=== PATIENT | male | born 1950 ===

== ENCOUNTER 2017-08-10 14:00 | Observation (INO) | payer MEDICARE, MEDICAID ==
[2017-08-10 14:00] VITALS: BMI 23.3
--- NOTE | 2017-08-10 14:22 | ED PDOC ---
HPI: Chest Pain Time Seen by Provider: 08/10/17 14:08 Chief Complaint (Nursing): Chest Pain Chief Complaint (Provider): Chest Pains and Palpitations History Per: Patient History/Exam Limitations: no limitations Onset/Duration Of Symptoms: Hrs Current Symptoms Are (Timing): Still Present Quality: Tightness, Squeezing Additional Complaint(s): Fred Resendiz, a 66 year old male, who has a past medical history of diabetes and hypertension is brought into the ED by the EMS complaining of non radiating squeezing, tight chest pains and palpitations associated with shortness of breath. Patient is status post cardiac catherization (2 years ago). PMD: Brodie Mcpherson [facility] Feeder: Dr. Jansen - Risk Factors TAD Risk Factors: Pos: Hypertension Past Medical History Reviewed: Historical Data, Nursing Documentation, Vital Signs Vital Signs: Last Vital Signs Temp 98.2 F 08/10/17 14:02 Pulse 76 08/10/17 14:48 Resp 16 08/10/17 14:02 BP 146/93 H 08/10/17 14:02 Pulse Ox 100 08/10/17 14:36 - Medical History PMH: Arthritis, Diabetes, Fractures (RT.ARM/RT.LEG/RT.SHOULDER, NO SURGERY), Gastritis, HTN, Hypercholesterolemia, Kidney Stones (LONG AGO PASSED, NO SURGERY ), Chronic Kidney Disease - Surgical History Surgical History: Appendectomy, Coronary Stent, Endoscopy - Family History Family History: States: Unknown Family Hx - Home Medications Home Medications: Ambulatory Orders Medication Instructions Recorded Insulin Human (NPH)/Regular 40 units SC BID 03/06/15 [Novolin 70/30 (70/30 units/ml) 10 ml] Lisinopril 10 mg PO DAILY 03/06/15 MetFORMIN [glucoPHAGE] 1,000 mg PO BID 03/06/15 Pravastatin Sodium [Pravastatin] 20 mg PO DAILY 03/06/15 Carvedilol 1 tab PO BID 09/25/15 - Allergies Allergies/Adverse Reactions: Allergies Allergy/AdvReac Type Severity Reaction Status Date / Time No Known Allergies Allergy Verified 08/10/17 14:02 Review of Systems ROS Statement: Except As Marked, All Systems Reviewed And Found Negative Cardiovascular: Positive for: Chest Pain (Squeezing tight chest pain), Palpitations Physical Exam - Reviewed Nursing Documentation Reviewed: Yes Vital Signs Reviewed: Yes - Physical Exam Appears: Positive for: Non-toxic, No Acute Distress Head Exam: Positive for: ATRAUMATIC, NORMAL INSPECTION, NORMOCEPHALIC Skin: Positive for: Normal Color, Warm, Dry. Negative for: Rash Eye Exam: Positive for: Normal appearance, EOMI, PERRL. Negative for: Nystagmus ENT: Positive for: Normal ENT Inspection Neck: Positive for: Normal, Painless ROM, Supple Cardiovascular/Chest: Positive for: Regular Rate, Rhythm, Chest Non Tender. Negative for: Tachycardia Respiratory: Positive for: Normal Breath Sounds. Negative for: Rales, Rhonchi, Wheezing, Respiratory Distress Gastrointestinal/Abdominal: Positive for: Normal Exam, Bowel Sounds, Soft. Negative for: Tenderness, Guarding, Rebound Back: Positive for: Normal Inspection. Negative for: L CVA Tenderness, R CVA Tenderness Extremity: Positive for: Normal ROM. Negative for: Tenderness, Deformity, Swelling Lymphatic: Negative for: Adenopathy Neurologic/Psych: Positive for: Alert, Oriented, Gait - ECG O2 Sat by Pulse Oximetry: 100 (RA) Pulse Ox Interpretation: Normal Medical Decision Making Medical Decision Makin Initial Impression: 66 y/o male presenting with chest pain - r/o acute coronary syndrome Initial Plan: * EKG * CMP * Troponin * CBC * CXR * Aspirin 325mg PO * Reevaluation Scribe Attestation Documented by Susan Morales acting as a scribe for Lam Weiner MD. Provider Attestation All medical record entries made by the Scribe were at my direction and personally dictated by me. I have reviewed the chart and agree that the record accurately reflects my personal performance of the history, physical exam, medical decision making, and the department course Disposition - Clinical Impression Clinical Impression: Chest pain - Patient ED Disposition Is Patient to be Admitted: Transfer of Care - Disposition Disposition: Transfer of Care Disposition Time: 15:00 Condition: FAIR Forms: [facility] (Hebrew) Patient Signed Over To: Melissa Stephen
[2017-08-10 14:55] LABS: BASO # 0.1 K/uL (0.0-0.2); EOS # 0.1 K/uL (0.0-0.7); EOS % 1.5 % (0.0-4.0); LYMPH # 2.7 K/uL (1.0-4.3); LYMPH % 32.2 % (20.0-40.0); MEAN CELL VOLUME 92.8 fl (80.0-94.0); MEAN CORPUSCULAR HEMOGLOBIN 30.7 pg (27.0-31.0); MEAN CORPUSCULAR HGB CONC 33.1 g/dL (33.0-37.0); MEAN PLATELET VOLUME 9.6 fl (7.2-11.7); MONO # 0.8 K/uL (0.0-0.8); MONO % 9.7 % (0.0-10.0); NEUT # 4.6 K/uL (1.8-7.0); NEUT % 55.6 % (50.0-75.0); NRBC % 0.1 % (0.0-0.0); RED CELL DISTRIBUTION WIDTH 12.4 % (11.5-14.5); WHITE BLOOD COUNT 8.2 K/uL (4.8-10.8)
[2017-08-10 15:10] LABS: ALB/GLOB RATIO 1.3 (1.0-2.1); ALKALINE PHOSPHATASE 58 U/L (38-126); ALT/SGPT 37 U/L (21-72); AST/SGOT 28 U/L (17-59); BILIRUBIN,TOTAL 0.5 mg/dl (0.2-1.3); BLOOD UREA NITROGEN 13 mg/dl (9-20); CALCIUM 9.6 mg/dL (8.4-10.2); CARBON DIOXIDE 25 mmol/L (22-30); CHLORIDE 103 mmol/L (98-107); GFR AFRICAN-AMERICAN > 60; GLUCOSE,RANDOM 180 mg/dL (75-110); POTASSIUM 4.3 MMOL/L (3.6-5.0); SODIUM 138 mmol/l (132-148); TOTAL PROTEIN 7.2 G/DL (6.3-8.2)
--- NOTE | 2017-08-10 15:40 | ED PDOC ---
- Laboratory Results Result Diagrams: 08/10/17 14:47 08/10/17 14:47 Interpretation Of Abn Labs: Mild hyperglycemia. No emergently significant lab abnormalities. - ECG ECG: Positive for: Interpreted By Me ECG Rhythm: Positive for: Normal QRS, Normal ST Segment, Sinus Rhythm O2 Sat by Pulse Oximetry: 100 (RA) Pulse Ox Interpretation: Normal - Radiology X-Ray: Interpreted by Me X-Ray Interpretation: No Acute Disease - Progress ED Course And Treament: [address] Weiner. Pt with chest pain and cardiac risk factors. Pending ER workup and hospitalization for serial troponins to r/o ACS. Disposition Discussed With : Tu Bojorquez Doctor Will See Patient In The: ED Counseled Patient/Family Regarding: Studies Performed, Diagnosis - Clinical Impression Clinical Impression: Chest pain - POA Present On Arrival: Poor Glycemic Control - Disposition Disposition: Hospitalized as Observation Patient Disposition Time: 15:00 Condition: SERIOUS Forms: [employer] (Telugu)
--- NOTE | 2017-08-10 17:20 | CP.PCM.HP ---
History of Present Illness - History of Present Illness History of Present Illness: 66 yo male with history of CAD (2 stents), DM2, HTN and HLD complained of pressure type of pain lasting for about 5 minutes since yesterday. Present on Admission - Present on Admission Any Indicators Present on Admission: No History of DVT/PE: No History of Uncontrolled Diabetes: No Urinary Catheter: No Decubitus Ulcer Present: No Review of Systems - Review of Systems All systems: reviewed and no additional remarkable complaints except (aside from those mentioned above, 12 point system review were negative by me) Past Patient History - Tetanus Immunizations Tetanus Immunization: Unknown - Past Medical History & Family History Past Medical History?: Yes Past Family History: Reviewed and not pertinent - Past Social History Smoking Status: Never Smoked Alcohol: None Drugs: Denies - CARDIAC Hx Hypercholesterolemia: Yes Hx Hypertension: Yes - PULMONARY Hx Respiratory Disorders: No - NEUROLOGICAL Hx Neurological Disorder: No - HEENT Hx HEENT Problems: Yes (GLASSES) Hx Cataracts: Yes Hx Glaucoma: Yes (HAD SURGERY) - RENAL Hx Kidney Stones: Yes (able to pass the stone) - ENDOCRINE/METABOLIC Hx Endocrine Disorders: Yes Hx Diabetes Mellitus Type 2: Yes - HEMATOLOGICAL/ONCOLOGICAL Hx Blood Disorders: No - INTEGUMENTARY Hx Dermatological Problems: No - MUSCULOSKELETAL/RHEUMATOLOGICAL Hx Arthritis: Yes Hx Fractures: Yes (RT.ARM/RT.LEG/RT.SHOULDER, NO SURGERY) - GASTROINTESTINAL Hx Gastritis: Yes - GENITOURINARY/GYNECOLOGICAL Hx Genitourinary Disorders: No - PSYCHIATRIC Hx Psychophysiologic Disorder: No Hx Substance Use: No - SURGICAL HISTORY Hx Appendectomy: Yes Hx Cholecystectomy: Yes Hx Coronary Stent: Yes (2004, 2014) - ANESTHESIA Hx Anesthesia: Yes Hx Anesthesia Reactions: No Hx Malignant Hyperthermia: No Meds Allergies/Adverse Reactions: Allergies Allergy/AdvReac Type Severity Reaction Status Date / Time No Known Allergies Allergy Verified 08/10/17 14:02 Physical Exam - Constitutional Appears: No Acute Distress - Head Exam Head Exam: ATRAUMATIC - Eye Exam Eye Exam: absent: Scleral icterus - ENT Exam ENT Exam: Mucous Membranes Moist - Neck Exam Neck exam: Negative for: Meningismus - Respiratory Exam Respiratory Exam: absent: Rhonchi, Wheezes, Respiratory Distress - Cardiovascular Exam Cardiovascular Exam: REGULAR RHYTHM, +S1, +S2 - GI/Abdominal Exam GI & Abdominal Exam: Soft. absent: Tenderness - Rectal Exam Rectal Exam: Deferred - Extremities Exam Extremities exam: Negative for: calf tenderness, pedal edema - Neurological Exam Neurological exam: Alert, Oriented x3 - Psychiatric Exam Psychiatric exam: Normal Affect - Skin Skin Exam: Dry, Intact Results - Vital Signs Recent Vital Signs: Last Vital Signs Temp 98.2 F 08/10/17 14:02 Pulse 76 08/10/17 14:48 Resp 16 08/10/17 14:02 BP 146/93 H 08/10/17 14:02 Pulse Ox 100 08/10/17 15:42 - Labs Result Diagrams: 08/10/17 14:47 08/10/17 14:47 Labs: Laboratory Results - last 24 hr 08/10/17 08/10/17 14:47 14:47 WBC 8.2 RBC 4.20 L Hgb 12.9 Hct 39.0 MCV 92.8 MCH 30.7 MCHC 33.1 RDW 12.4 Plt Count 235 MPV 9.6 Neut % (Auto) 55.6 Lymph % (Auto) 32.2 [place] % (Auto) 9.7 Eos % (Auto) 1.5 Baso % (Auto) 1.0 Neut # 4.6 Lymph # 2.7 [place] # 0.8 Eos # 0.1 Baso # 0.1 Sodium 138 Potassium 4.3 Chloride 103 Carbon Dioxide 25 Anion Gap 15 BUN 13 Creatinine 0.8 Est GFR ( Amer) > 60 Est GFR (Non-Af Amer) > 60 Random Glucose 180 H Calcium 9.6 Total Bilirubin 0.5 AST 28 ALT 37 Alkaline Phosphatase 58 Troponin I < 0.0120 Total Protein 7.2 Albumin 4.1 Globulin 3.1 Albumin/Globulin Ratio 1.3 Assessment & Plan (1) Chest pain Status: Acute Comment: place on observation in telemetry. serial Troponin and EKG. Lipid panel in am. ASA 81mg PO daily. Lipitor 10mg PO daily. NTG SL prn for chest pain. Coreg 12.5mg PO BID (2) DM2 (diabetes mellitus, type 2) Status: Acute Comment: accuchek ACHS with low Lispro coverage. diabetic diet. Metformin 1000mg PO BID. HgA1C, BMP in am (3) HTN (hypertension) Status: Acute Comment: BP slightly elevated. Coreg 12.5mg PO BID. Lisinopril 10mg PO daily (4) DVT prophylaxis Status: Acute Comment: Lovenox 40mg SC daily
--- NOTE | 2017-08-10 17:52 | RAD ---
HISTORY: chest pain COMPARISON: No prior. TECHNIQUE: Chest PA and lateral FINDINGS: LUNGS: No active pulmonary disease. PLEURA: No significant pleural effusion identified. No pneumothorax apparent. CARDIOVASCULAR: Normal. OSSEOUS STRUCTURES: No significant abnormalities. VISUALIZED UPPER ABDOMEN: Normal. OTHER FINDINGS: None. IMPRESSION: No active disease.
[2017-08-10] MEDS: Insulin Lispro (humaLOG) 100 Units/ml Inj SC SCH (22:04)
[2017-08-11 06:27] LABS: BLOOD UREA NITROGEN 14 mg/dl (9-20); CALCIUM 9.6 mg/dL (8.4-10.2); CARBON DIOXIDE 25 mmol/L (22-30); CHLORIDE 102 mmol/L (98-107); CHOLESTEROL 155 mg/dL (0-199); GFR AFRICAN-AMERICAN > 60; GLUCOSE,RANDOM 189 mg/dL (75-110); POTASSIUM 4.8 MMOL/L (3.6-5.0); SODIUM 139 mmol/l (132-148)
[2017-08-11 06:29] LABS: BASO # 0.1 K/uL (0.0-0.2); BASO % 0.6 % (0.0-2.0); EOS # 0.2 K/uL (0.0-0.7); HEMATOCRIT 40.3 % (35.0-51.0); LYMPH # 3.1 K/uL (1.0-4.3); LYMPH % 34.2 % (20.0-40.0); MEAN CELL VOLUME 93.5 fl (80.0-94.0); MEAN CORPUSCULAR HEMOGLOBIN 31.2 pg (27.0-31.0); MEAN CORPUSCULAR HGB CONC 33.4 g/dL (33.0-37.0); MEAN PLATELET VOLUME 9.5 fl (7.2-11.7); MONO # 0.8 K/uL (0.0-0.8); MONO % 8.9 % (0.0-10.0); NEUT # 4.9 K/uL (1.8-7.0); NEUT % 54.3 % (50.0-75.0); NRBC % 0.1 % (0.0-0.0); RED CELL DISTRIBUTION WIDTH 12.5 % (11.5-14.5); WHITE BLOOD COUNT 9.1 K/uL (4.8-10.8)
[2017-08-11 08:31] VITALS: PULSE 66; RESP 18; TEMP 98.1; O2SAT 97
[2017-08-11] MEDS ORDERED: Pantoprazole 40 mg EC Tab PO SCH (09:00)
[2017-08-11] MEDS ORDERED: Enoxaparin 40 mg Syringe SC SCH (09:00)
[2017-08-11] MEDS: Insulin Lispro (humaLOG) 100 Units/ml Inj SC SCH (09:43)
[2017-08-11 09:48] VITALS: BP 136/76
--- NOTE | 2017-08-11 10:48 | CP.PCM.DIS ---
Provider - Provider Date of Admission: 08/10/17 15:38 Attending physician: Tu Bojorquez MD Time Spent in preparation of Discharge (in minutes): 25 Diagnosis - Discharge Diagnosis (1) Chest pain Status: Acute Comment: chest pain non-cardiac in origin (2) DM2 (diabetes mellitus, type 2) Status: Acute (3) HTN (hypertension) Status: Chronic Comment: BP stable. continue Lisinopril and Toprol XL Hospital Course - Lab Results Lab Results: Most Recent Lab Values WBC 9.1 K/uL (4.8-10.8) 08/11/17 05:55 RBC 4.31 Mil/uL (4.40-5.90) L 08/11/17 05:55 Hgb 13.4 g/dL (12.0-18.0) 08/11/17 05:55 Hct 40.3 % (35.0-51.0) 08/11/17 05:55 MCV 93.5 fl (80.0-94.0) 08/11/17 05:55 MCH 31.2 pg (27.0-31.0) H 08/11/17 05:55 MCHC 33.4 g/dL (33.0-37.0) 08/11/17 05:55 RDW 12.5 % (11.5-14.5) 08/11/17 05:55 Plt Count 219 K/uL (130-400) 08/11/17 05:55 MPV 9.5 fl (7.2-11.7) 08/11/17 05:55 Neut % (Auto) 54.3 % (50.0-75.0) 08/11/17 05:55 Lymph % (Auto) 34.2 % (20.0-40.0) 08/11/17 05:55 [place] % (Auto) 8.9 % (0.0-10.0) 08/11/17 05:55 Eos % (Auto) 2.0 % (0.0-4.0) 08/11/17 05:55 Baso % (Auto) 0.6 % (0.0-2.0) 08/11/17 05:55 Neut # 4.9 K/uL (1.8-7.0) 08/11/17 05:55 Lymph # 3.1 K/uL (1.0-4.3) 08/11/17 05:55 [place] # 0.8 K/uL (0.0-0.8) 08/11/17 05:55 Eos # 0.2 K/uL (0.0-0.7) 08/11/17 05:55 Baso # 0.1 K/uL (0.0-0.2) 08/11/17 05:55 Sodium 139 mmol/l (132-148) 08/11/17 05:55 Potassium 4.8 MMOL/L (3.6-5.0) 08/11/17 05:55 Chloride 102 mmol/L (98-107) 08/11/17 05:55 Carbon Dioxide 25 mmol/L (22-30) 08/11/17 05:55 Anion Gap 17 (10-20) 08/11/17 05:55 BUN 14 mg/dl (9-20) 08/11/17 05:55 Creatinine 0.8 mg/dL (0.8-1.5) 08/11/17 05:55 Est GFR ( Amer) > 60 08/11/17 05:55 Est GFR (Non-Af Amer) > 60 08/11/17 05:55 POC Glucose (mg/dL) 195 mg/dL (65-110) H 08/11/17 05:25 Random Glucose 189 mg/dL (75-110) H 08/11/17 05:55 Calcium 9.6 mg/dL (8.4-10.2) 08/11/17 05:55 Total Bilirubin 0.5 mg/dl (0.2-1.3) 08/10/17 14:47 AST 28 U/L (17-59) 08/10/17 14:47 ALT 37 U/L (21-72) 08/10/17 14:47 Alkaline Phosphatase 58 U/L (38-126) 08/10/17 14:47 Troponin I < 0.0120 ng/mL (0.00-0.120) 08/11/17 06:45 Total Protein 7.2 G/DL (6.3-8.2) 08/10/17 14:47 Albumin 4.1 g/dL (3.5-5.0) 08/10/17 14:47 Globulin 3.1 gm/dL (2.2-3.9) 08/10/17 14:47 Albumin/Globulin Ratio 1.3 (1.0-2.1) 08/10/17 14:47 Triglycerides 199 mg/DL (0-149) H 08/11/17 05:55 Cholesterol 155 mg/dL (0-199) 08/11/17 05:55 LDL Cholesterol Direct 85 mg/dL (0-129) 08/11/17 05:55 HDL Cholesterol 34 MG/DL (30-70) 08/11/17 05:55 - Hospital Course Hospital Course: 66 yo male with history of CAD (2 stents), DM2, HTN and HLD complained of on and off pressure type of pain lasting for about 5 minutes accompanied with dizziness. Series of Troponins and EKG were negative for ischemic events. Chest pain had not recurred although still admitting some dizziness. Discharge Exam - Head Exam Head Exam: ATRAUMATIC - Eye Exam Eye Exam: absent: Scleral icterus - ENT Exam ENT Exam: Mucous Membranes Moist - Respiratory Exam Respiratory Exam: absent: Rales, Rhonchi, Wheezes, Respiratory Distress - Cardiovascular Exam Cardiovascular Exam: REGULAR RHYTHM, +S1, +S2 - GI/Abdominal Exam GI & Abdominal Exam: Soft. absent: Tenderness - Rectal Exam Rectal Exam: Deferred - Neurological Exam Neurological exam: Alert, Oriented x3 - Psychiatric Exam Psychiatric exam: Normal Affect - Skin Skin Exam: Dry, Intact Discharge Plan - Follow Up Plan Condition: SERIOUS Disposition: HOME/ ROUTINE
--- NOTE | 2017-08-11 11:38 | CARD ---
APPROVED REPORT EKG Measurement Heart [id number] <Conclusion> Normal sinus rhythm Normal ECG
== END 2017-08-11 11:29 | disposition home or self-care (01) ==
LOC: H.ER 14:00 → H.ERHOLD 15:38 → H.TEL 20:42
DX: R07.89 Other chest pain (principal); I10 Essential (primary) hypertension; K29.70 Gastritis, unspecified, without bleeding; E78.00 Pure hypercholesterolemia, unspecified; E78.5 Hyperlipidemia, unspecified; I25.10 Atherosclerotic heart disease of native coronary artery without angina pectoris; Z95.5 Presence of coronary angioplasty implant and graft; E11.65 Type 2 diabetes mellitus with hyperglycemia
CPT/HCPCS: 36415; 71020; 80048; 80053; 80061; 82948; 84484; 85025; 93005; 99285; G0378; J1650